=== PATIENT | female | born 1995 | race Caucasian/White ===

== ENCOUNTER 2017-12-18 06:20 | Inpatient (IN) | payer MEDICAID ==
[2017-12-18] MEDS ORDERED: LACTATED RINGER'S 1,000 ML IV (07:03)
[2017-12-18] MEDS ORDERED: BUTORPHANOL 2 MG INJ IV (07:30)
[2017-12-18] MEDS ORDERED: LIDOCAINE 1% (MPF) 30 ML INJ INJ (07:30)
[2017-12-18] MEDS ORDERED: METHYLERGONOVINE 0.2 MG INJ IM ×2 (07:30→19:00)
[2017-12-18] MEDS ORDERED: IBUPROFEN 600 MG TAB PO (07:30)
[2017-12-18] MEDS ORDERED: CARBOPROST 250 MCG INJ IM ×2 (07:30→19:00)
[2017-12-18] MEDS ORDERED: MISOPROSTOL 200 MCG TAB PR ×2 (07:30→19:00)
[2017-12-18] MEDS ORDERED: OXYTOCIN 30 UNITS/LR 500 ML IV ×2 (07:30→19:00)
[2017-12-18 07:37] LABS: ADD MAN DIFF? NO
[2017-12-18 07:40] LABS: BASOPHILS % 0.1 % (0.0-2.0); EOSINOPHILS # 0.1 10^3/ul (0.0-0.5); EOSINOPHILS % 1.1 % (0.0-7.0); HEMOGLOBIN 9.9 g/dl (12.0-16.0); LYMPHOCYTES # 1.8 10^3/ul (0.8-2.9); LYMPHOCYTES % 24.1 % (15.0-51.0); MEAN CORPUSCULAR HEMOGLOBIN 25.1 pg (29.0-33.0); MEAN CORPUSCULAR HGB CONC 31.9 g/dl (32.0-37.0); MEAN CORPUSCULAR VOLUME 78.7 fl (82.0-101.0); MEAN PLATELET VOLUME 11.9 fl (7.4-10.4); MONOCYTE # 0.7 10^3/ul (0.3-0.9); MONOCYTES % 9.3 % (0.0-11.0); NEUTROPHIL # 4.8 10^3/ul (1.6-7.5); PLATELET COUNT 193 10^3/UL (140-415); RED BLOOD COUNT 3.94 10^6/ul (4.20-5.40); RED CELL DISTRIBUTION WIDTH 14.3 % (11.5-14.5)
[2017-12-18 07:40] LABS: WHITE BLOOD COUNT 7.4 10^3/ul (4.8-10.8)
[2017-12-18] MEDS: LACTATED RINGER'S 1,000 ML IV ×2 (07:44→15:24)
[2017-12-18 08:09] LABS: INR 0.86; PROTIME 11.8 Sec (11.9-14.9); PT RATIO 0.9
[2017-12-18 08:10] LABS: PARTIAL THROMBOPLASTIN TIME 25.1 Sec (25.0-35.0)
[2017-12-18 08:32] LABS: HEPATITIS B SURFACE ANTIGEN NEGATIVE (NEGATIVE)
[2017-12-18] MEDS: MISOPROSTOL 25 MCG CAPSULE PO (09:36)
[2017-12-18] MEDS: BUTORPHANOL 2 MG INJ IV (15:15)
[2017-12-18] MEDS: OXYTOCIN 30 UNITS/LR 500 ML IV ×4 (16:24→23:13)
[2017-12-18] MEDS ORDERED: FENTAnyl 2MCG/ML-ROPIV 0.2% 100 ML (16:30)
[2017-12-18] MEDS ORDERED: NALOXONE (0.4 MG/ML) INJ IV (18:00)
[2017-12-18] MEDS ORDERED: ONDANSETRON 4 MG INJ IV ×2 (18:00→19:00)
[2017-12-18] MEDS ORDERED: DIPHENHYDRAMINE 50 MG INJ IV (18:00)
[2017-12-18] MEDS: FENTAnyl 2MCG/ML-ROPIV 0.2% 100 ML BAG EPI (18:04)
[2017-12-18] MEDS ORDERED: SENNA/DOCUSATE NA (8.6MG/50MG) TAB PO (19:00)
[2017-12-18] MEDS ORDERED: ACETAMINOPHEN 325 MG TAB PO (19:00)
[2017-12-18] MEDS ORDERED: DIPHENHYDRAMINE 25 MG CAP PO (19:00)
[2017-12-18 22:21] LABS: RAPID PLASMA REAGIN NONREACTIVE (NR)
[2017-12-18] MEDS: MAGNESIUM HYDROXIDE 30ML CUP PO (22:31)
[2017-12-18] MEDS: SENNA/DOCUSATE NA (8.6MG/50MG) TAB PO (22:31)
[2017-12-18] MEDS: IBUPROFEN 600 MG TAB PO (23:12)
[2017-12-19] MEDS: OXYCODONE/ASPIRIN (4.88/325) TAB PO ×5 (00:57→22:09)
[2017-12-19] MEDS: IBUPROFEN 600 MG TAB PO ×4 (05:25→23:40)
[2017-12-19] MEDS: SENNA/DOCUSATE NA (8.6MG/50MG) TAB PO ×2 (08:48→21:31)
[2017-12-19] MEDS: MAGNESIUM HYDROXIDE 30ML CUP PO ×2 (08:48→21:31)
[2017-12-19 11:23] LABS: ADD MAN DIFF? NO
[2017-12-19 11:28] LABS: BASOPHILS % 0.3 % (0.0-2.0); EOSINOPHILS # 0.1 10^3/ul (0.0-0.5); EOSINOPHILS % 0.6 % (0.0-7.0); HEMATOCRIT 30.3 % (37.0-47.0); HEMOGLOBIN 9.7 g/dl (12.0-16.0); LYMPHOCYTES # 1.8 10^3/ul (0.8-2.9); LYMPHOCYTES % 16.4 % (15.0-51.0); MEAN CORPUSCULAR HEMOGLOBIN 25.1 pg (29.0-33.0); MEAN CORPUSCULAR VOLUME 78.3 fl (82.0-101.0); MEAN PLATELET VOLUME 11.3 fl (7.4-10.4); MONOCYTE # 0.9 10^3/ul (0.3-0.9); NEUTROPHILS % 74.1 % (39.0-77.0); PLATELET COUNT 177 10^3/UL (140-415); RED BLOOD COUNT 3.87 10^6/ul (4.20-5.40); RED CELL DISTRIBUTION WIDTH 14.7 % (11.5-14.5)
[2017-12-19 11:28] LABS: WHITE BLOOD COUNT 10.8 10^3/ul (4.8-10.8)
[2017-12-20] MEDS: OXYCODONE/ASPIRIN (4.88/325) TAB PO ×2 (00:56→08:06)
[2017-12-20] MEDS: IBUPROFEN 600 MG TAB PO ×2 (04:46→11:44)
[2017-12-20] MEDS: MAGNESIUM HYDROXIDE 30ML CUP PO (09:20)
[2017-12-20] MEDS: SENNA/DOCUSATE NA (8.6MG/50MG) TAB PO (09:20)
[2017-12-20] MEDS: LANOLIN 7 GM TUBE TOP (12:08)
[2017-12-20] MEDS: WITCH HAZEL/GLYCERIN PAD PR (12:08)
[2017-12-20] MEDS: DIBUCAINE 1% 30 GM OINT PR (12:08)
[2017-12-20] MEDS: BENZOCAINE 20% 56 ML SPRAY TOP (12:08)
== END 2017-12-20 16:13 | disposition home or self-care (01) | DRG 775 ==
LOC: L-D 06:20 → PP1 20:55
PROVIDERS: Obstetrics & Gynecology
PROC: 10E0XZZ Delivery of Products of Conception, External Approach (ICD-10-PCS; principal; 2017-12-18 06:00)
PROC: 0UQMXZZ Repair Vulva, External Approach (ICD-10-PCS; 2017-12-18 06:00)
PROC: 3E033VJ Introduction of Other Hormone into Peripheral Vein, Percutaneous Approach (ICD-10-PCS; 2017-12-18 06:00)
DX: O48.0 Post-term pregnancy (principal); Z3A.40 40 weeks gestation of pregnancy; O70.0 First degree perineal laceration during delivery; Z37.0 Single live birth
CPT/HCPCS: 62319; 76816; 85025; 85610; 85730; 86592; 86850; 86900; 86901; 87340

== ENCOUNTER 2018-04-16 07:15 | Day surgery (SDC) | payer MEDICAID ==
[2018-04-16 08:23] LABS: ADD MAN DIFF? NO
[2018-04-16 08:25] LABS: BASOPHILS % 0.3 % (0.0-2.0); EOSINOPHILS # 0.1 10^3/ul (0.0-0.5); EOSINOPHILS % 1.4 % (0.0-7.0); HEMATOCRIT 38.5 % (37.0-47.0); HEMOGLOBIN 12.8 g/dl (12.0-16.0); IMMATURE GRANS #M 0.02 10^3/ul; IMMATURE GRANS % (M) 0.3 %; LYMPHOCYTES # 2.2 10^3/ul (0.8-2.9); LYMPHOCYTES % 30.4 % (15.0-51.0); MEAN CORPUSCULAR HEMOGLOBIN 28.6 pg (29.0-33.0); MEAN CORPUSCULAR HGB CONC 33.2 g/dl (32.0-37.0); MEAN CORPUSCULAR VOLUME 86.1 fl (82.0-101.0); MEAN PLATELET VOLUME 10.2 fl (7.4-10.4); MONOCYTE # 0.7 10^3/ul (0.3-0.9); MONOCYTES % 9.3 % (0.0-11.0); NEUTROPHIL # 4.2 10^3/ul (1.6-7.5); NEUTROPHILS % 58.3 % (39.0-77.0); PLATELET COUNT 249 10^3/UL (140-415); RED BLOOD COUNT 4.47 10^6/ul (4.20-5.40); RED CELL DISTRIBUTION WIDTH 12.9 % (11.5-14.5)
[2018-04-16 08:25] LABS: WHITE BLOOD COUNT 7.1 10^3/ul (4.8-10.8)
[2018-04-16] MEDS ORDERED: ONDANSETRON 4 MG INJ (08:59)
[2018-04-16] MEDS ORDERED: DEXAMETHASONE 4 MG/ML 1 ML INJ (08:59)
[2018-04-16] MEDS ORDERED: LIDOCAINE 2% (SDV) 5 ML INJ (08:59)
[2018-04-16] MEDS ORDERED: PROPOFOL 20 ML (08:59)
[2018-04-16] MEDS ORDERED: ONDANSETRON 4 MG INJ IV (09:00)
[2018-04-16] MEDS ORDERED: MEPERIDINE 25 MG INJ IV (09:00)
[2018-04-16] MEDS ORDERED: OXYCODONE/ACETAMINOPHEN (5/325) TAB PO ×2 (09:00)
[2018-04-16] MEDS ORDERED: DIPHENHYDRAMINE 50 MG INJ IV (09:00)
[2018-04-16] MEDS ORDERED: MIDAZOLAM 1 MG/ML 2 ML INJ IV (09:00)
[2018-04-16] MEDS ORDERED: FENTAnyl 50 MCG/ML VIAL IV ×3 (09:00)
== END 2018-04-16 11:50 | disposition home or self-care (01) ==
LOC: SDS 07:15
DX: Z30.2 Encounter for sterilization (principal)
CPT/HCPCS: 58565; 84702; 85025; 86850; 86900; 86901